=== PATIENT | female | born 1950 | race Caucasian/White ===

== ENCOUNTER → 2017-08-06 | Outpatient (CLI) | payer MEDICARE, OTHER ==
--- NOTE | 2017-08-09 09:09 | Diagnostic Imaging Report ---
History: Right jaw/neck mass Comparison studies: None Technique: Axial images were obtained from the skull base to the thoracic inlet. Coronal and sagittal images reconstructed from the axial data. Intravenous contrast: None Findings: Evaluation of the neck is limited due to the absence of intravenous contrast. Evaluation of the oral cavity is also somewhat limited by streak artifact related to dental amalgam. Soft tissues: No gross abnormalities. No mass identified in the area of concern regional to the right jaw/upper neck as denoted by a marker placed on the skin superficial to the right parotid gland. Lymph nodes: No enlarged lymph nodes. Vessels: Cannot evaluate. Scattered calcified atherosclerosis in the aortic arch, at the left carotid bulb, within the carotid siphons and right intradural vertebral artery. Glands (thyroid, parotid and submandibular): Normal in size and symmetric. No masses. Orbits: No abnormalities. Paranasal sinuses: Clear. Temporal bones: No abnormalities. Skull base and facial bones: Mild degenerative changes at the right temporomandibular joint with marginal osteophyte along the anterior mandibular condyle. Cervical spine: Mild multilevel cervical disc degeneration. Disc osteophyte complex at C4-C5 indents the thecal sac but does not result in significant canal stenosis. Facet arthrosis on the left from C2 to C7, worse at C2-C3 and at C6-C7. No significant foraminal stenosis. Mildly prominent T3-T4 right marginal osteophyte. IMPRESSION: Exam is limited in the absence of IV contrast. In spite of this limitation: 1. No mass identified in the area concerned regional to the right jaw/upper neck. 2. Mild degenerative changes at the right TMJ. 3. No enlarged cervical lymph nodes. 4. Degenerative changes in the cervical spine. Signed by: Dr. Raymon Schroeder M.D. on 08/09/2017 9:05 AM
== END ==
LOC: CT 13:55
PROVIDERS: ATTEND Internal Medicine
DX: R22.1 Localized swelling, mass and lump, neck (principal)
CPT/HCPCS: 70490

== ENCOUNTER → 2017-11-08 | Outpatient (CLI) | payer MEDICARE, OTHER ==
--- NOTE | 2017-11-08 11:30 | Diagnostic Imaging Report ---
TECHNIQUE: Computed tomography imaging of the RIGHT HIP was performed WITHOUT injected contrast. HISTORY: Right hip pain and swelling COMPARISON: None available. FINDINGS: No fracture. No osteonecrosis. No lytic or blastic lesion. Mild narrowing of the left hip joint with developing osteophyte formation. Enthesophyte change on the greater trochanter. No soft tissue mass. No fluid collection. 4 mm soft tissue calcification within the right upper thigh axial image 84 IMPRESSION: Mild right hip degenerative arthrosis. Signed by: Dr. Randy Camacho M.D. on 11/08/2017 11:26 AM
== END ==
LOC: CT 10:06
PROVIDERS: ATTEND Internal Medicine
DX: M25.451 Effusion, right hip (principal)